=== PATIENT | male | born 1930 | race Asian ===

== ENCOUNTER 2019-07-12 17:45 | Emergency (ER) | payer OTHER ==
[~2019-07-12] VITALS: Ht 172.7 cm; Wt 79.2 kg
[2019-07-12 17:45] VITALS: BP 114/81; TEMP 97.5
[2019-07-12 18:43] LABS: PLATELET COUNT 176 K/uL (142-355)
[2019-07-13] MEDS ORDERED: CODEINE/GUAIFEN1 SOL PO ×2 (05:06→05:15)
[2019-07-13] MEDS ORDERED: TYLENOL325 MG PO (05:17)
[2019-07-13] MEDS ORDERED: ALUMSUS6 PO (05:18)
[2019-07-13] MEDS ORDERED: ASA LOW DOSE81 MG PO (05:19)
[2019-07-13] MEDS ORDERED: EQ STOOL SOFTE100 MG PO (05:21)
[2019-07-13] MEDS ORDERED: DIFLUCAN50 MG PO (05:22)
[2019-07-13] MEDS ORDERED: PRED20TA27 PO ×3 (05:26→05:29)
[2019-07-13] MEDS ORDERED: PREDNISONE20 MG PO (05:30)
[2019-07-13] MEDS ORDERED: SEROQUEL25 MG PO (05:31)
[2019-07-13] MEDS ORDERED: LISI5TAB10 PO (05:33)
[2019-07-13] MEDS ORDERED: METO50TA63 PO (05:34)
[2019-07-13] MEDS ORDERED: NOVOLOG FL100 UNIT/M SC (05:51)
[2019-07-13] MEDS ORDERED: FSBS (05:53)
== END 2019-07-12 19:26 | disposition other institution (70) ==
LOC: ED 17:59
PROVIDERS: Emergency Medicine
DX: F03.90 Unspecified dementia, unspecified severity, without behavioral disturbance, psychotic disturbance, mood disturbance, and anxiety (principal); I48.92 Unspecified atrial flutter; R94.31 Abnormal electrocardiogram [ECG] [EKG]; Z04.6 Encounter for general psychiatric examination, requested by authority
CPT/HCPCS: 80053; 85027; 93005; 99283